=== PATIENT | female | born 1980 | race Two or more races ===

== ENCOUNTER 2024-05-06 23:20 | Emergency (ER) | payer BC, OTHER, SELFPAY ==
[2024-05-06 23:22] VITALS: BMI 27.7
--- NOTE | 2024-05-06 23:25 | EKG_ITS ---
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1980 Requested By: ED Temporary Provider Order Number: [id number] Reading MD: ED Temporary Provider Measurements Intervals [place] Rate: 103 P: 49 IA: 142 QRS: -14 QRSD: 95 T: 36 QT: 335 QTc: 440 Interpretive Statements SINUS TACHYCARDIA LOW QRS VOLTAGE IN PRECORDIAL LEADS [QRS DEFLECTION < 1.0 mV IN CHEST LEADS] INCOMPLETE RIGHT BUNDLE BRANCH BLOCK [90+ ms QRS DURATION, TERMINAL R IN V1/V2, 40+ ms S IN I/aVL/V4/V5/V6] POSSIBLE ANTERIOR MYOCARDIAL INFARCTION , OF INDETERMINATE AGE [30 ms Q WAVE IN V3/V4, OR R < 0.2 mV IN V4] Compared to ECG 01/26/2022 07:33:01 Low QRS voltage now present Myocardial infarct finding now present Sinus rhythm no longer present /store/S0/[id number].pdf
[2024-05-06 23:37] VITALS: BP 149/90; PULSE 107; RESP 20; TEMP 37; O2SAT 98
--- NOTE | 2024-05-06 23:48 | XR_ITS ---
Examination: PA chest single view TECHNIQUE: Upright PA chest single view Exam done: 02/06/2024 at 10:50 PM Comparison March 02, 2022 INDICATIONS: Chest pain beginning 4 days ago FINDINGS: Normal heart size No pneumonia or pulmonary edema The osseous structures are intact IMPRESSION: No lobar pneumonia or pulmonary edema
--- NOTE | 2024-05-06 23:48 | PD.EDRME ---
Rapid Medical Screening Exam RME Arrival date/time: 05/06/24 23:20 Chief Complaint: Chest Pain Time Seen by Provider: 05/06/24 23:35 Vital signs: Vital Signs Temperature 98.6 F 05/06/24 23:37 Pulse Rate 107 H 05/06/24 23:37 Respiratory Rate 20 05/06/24 23:37 Blood Pressure 149/90 H 05/06/24 23:37 Pulse Oximetry (%) 98 05/06/24 23:37 Oxygen Delivery Method Room Air 05/06/24 23:37 E Narrative: Intermittent substernal sharp, shock-like chest pains x4 days. No other symptoms reported.
--- NOTE | 2024-05-06 23:57 | EDNOTE_ITS ---
ED Chest Pain RME/HPI General Chief Complaint: Chest Pain Stated Complaint: CHEST PAIN X 4 DAYS Time Seen by Provider: 05/06/24 23:35 Arrival date/time: 05/06/24 23:20 RME / HPI RME / HPI narrative: Intermittent substernal sharp, shock-like chest pains x4 days. No other symptoms reported. ------ This section includes all my notes and documentations, including HPI, PE, and ED course. Juan Luis Hatch MD HPI: 44yo female presents to the ED for a chief complaint of intermittent chest pain x 3-4 days. Patient describes her pain as sharp in nature. No radiation or migration. She denies any past medical history and is not on any medications. She denies any cough, shortness of breath, fever, chills or any other associated symptoms. No other complaints reported. ROS: All negative except as documented in HPI. Physical Exam: General: Alert and oriented. No acute distress when remaining still. Eyes: Conjunctivae and lids clear. ENT: No nasal congestion. Neck: Supple. Heart: RRR. Lungs: No respiratory distress. Good air movement. No rhonchi, wheezing, rales. Abdomen: Soft and nontender. Legs: No clubbing, cyanosis, edema. Skin: Warm and dry. Neuro: Alert and oriented X 3. I reviewed all diagnostic test results. My interpretation of the EKG is sinus rhythm with no acute ST?T changes. My interpretation of the chest x-ray is no acute findings. Blood tests and urine tests unremarkable. At this point, diagnoses include palpitations. Treatment here included Xanax. Significant improvement noted. Recommended more outpatient cardiac workup. Based on my best medical judgment, made decision no further evaluation or treatment indicated at this time. Patient understands and agrees to the discharge instructions customized and printed, see below. Discharge instructions from Dr. Hatch: 1. After extensive evaluation, there is no life-threatening condition. Such as heart attack or pneumothorax (collapsed lung). 2. Your symptoms may be due to underlying stress or anxiety or nerves. There are other possibilities. 3. Take metoprolol ER 25 mg daily, this will help slow your heart. You will live longer with slower heart rate. 4. See a private doctor on 05/08/2024 for recheck. To make sure there is no serious underlying heart condition, ask to help you get more tests for your heart that cannot be done here in the ER. Such as Holter Monitor (cardiac monitoring at home from a day to even a month), heart stress test (on treadmill or with medication), echocardiogram (imaging of your heart structures), heart catherization (checking for blockages in your heart arteries ), and a referral to see a Communication Electronic Technician. 5. Seek immediate medical care with worsening or with any concerns. Juan Luis Hatch MD Related Data Previous Rx's ?Medication ?Instructions ?Recorded ciprofloxacin HCl 500 mg tablet 500 mg PO BID #14 tabs 02/03/23 (Cipro) metoprolol succinate 25 mg capsule 25 mg PO QDAY #30 e a 05/07/24 sprinkle, ext. release 24 hr Allergies Allergy/AdvReac Type Severity Reaction Status Date / Time latex Allergy Severe RASH Verified 05/06/24 23:21 Review of Systems Review of Systems Systems Reviewed: All systems reviewed, normal except as documented Past Medical History Social History SMOKING STATUS: Never smoker ED Exam Narrative Physical exam: As noted in HPI. Course Course Course Narrative: CXR is ordered for determining the etiology of chest pain. Quality Measures none Orders Category Date Time Status EKG (ED ONLY) *Do not use* NOW Care 05/06/24 23:25 Completed CXR [XR chest 1V] Stat Exams 05/06/24 23:48 Completed EKG (ED Only) Stat Exams 05/06/24 23:25 Draft BNP [B-Type Natriuretic Peptide] Stat Lab 05/06/24 23:48 Completed CBC Stat Lab 05/06/24 23:48 Completed CMP [Comprehensive Metabolic Panel] Stat Lab 05/06/24 23:48 Completed Magnesium Stat Lab 05/07/24 00:07 Completed Thyroid Stimulating Hormone Stat Lab 05/07/24 00:07 Completed Troponin I Stat Lab 05/06/24 23:48 Completed UA [Urinalysis] Stat Lab 05/07/24 00:34 Completed ALPRazoLAM [Xanax] Med 05/07/24 00:28 Discontinued 0.25 mg PO X1 ONE Vital Signs Vital signs: Vital Signs Temperature 98.6 F 05/06/24 23:37 Pulse Rate 107 H 05/06/24 23:37 Respiratory Rate 20 05/06/24 23:37 Blood Pressure 149/90 H 05/06/24 23:37 Pulse Oximetry (%) 98 05/06/24 23:37 Oxygen Delivery Method Room Air 05/06/24 23:37 Chest Pain MDM Narrative MDM Narrative:: Scribe Attestation: 05/06/24 Whitney Chavarria am scribing for and in the presence of Dr. Hatch. Patient data External records reviewed:: [facility] previous records (Per chart review, patient was seen here on 02/03/23 for abdominal pain.) Clinical information provided by:: patient Social determinants that could affect healthcare access:: none Patient has the following chronic illnesses:: none How is presenting disease/condition affected by chronic disease/condition?: no chronic disease Evaluation data The following diagnostics were reviewed and interpreted by me:: lab results, radiology exam(s) and EKG tracing(s) Lab and/or radiology exams considered but not ordered:: none Interpretation Summary: Palpitations Medications / Prescriptions Medications or Prescriptions considered but not ordered:: none Medication administrations:: Medication Administration History Discontinued Medications Alprazolam (Alprazolam 0.25 Mg Tablet) 0.25 mg PO X1 ONE Stop: 05/07/24 00:29 Last Admin: 05/07/24 00:44 Dose: 0.25 mg Documented By: NASH Wilkinson Consultations Consultation(s) initiated? (list below): No Diagnosis Chest Pain Differential Diagnosis: pneumothorax, stable angina, unstable angina pectoris, atypical chest pain, st elevation myocardial infarction, cost ochondritis and other (Anxiety, chest wall.) Most likely diagnosis given after review of the tests above:: Palpitations Admission Indicated Admission indicated?: not indicated Explain why admission is indicated or not indicated:: No criteria for admission. Admission Request Was there a request for admission?: No Disposition Plan Disposition Plan: Discharge Discharge Attestation Discharge Attestation: The patient and all family members were given an opportunity to ask questions and understood the discharge instructions. Discharge instructions specifically effects, indications for sooner follow up or return to the emergency department, and the expected course of current diagnosis. Patient condition: Stable Discharge Plan Plan Patient Disposition: HOME (Self Care) Prescriptions/Referrals Prescriptions/Med Rec: New metoprolol succinate 25 mg capsule,sprinkle,ER 24hr 25 mg PO QDAY Qty: 30 0RF No Action ciprofloxacin HCl [Cipro] 500 mg tablet 500 mg PO BID Qty: 14 0RF Referrals: No Primary/Family,Physician [Primary Care Provider] - In 1 week Problem List Clinical Impression: Heart rate fast Patient/Caregiver Discharge Instructions Discharge Activity: activity as tolerated Education Materials: ED Palpitations Additional Instructions: Discharge instructions from Dr. Hatch: 1. After extensive evaluation, there is no life-threatening condition.? Such as heart attack or pneumothorax (collapsed lung). 2. Your symptoms may be due to underlying stress or anxiety or nerves.? There are other possibilities. 3. Take metoprolol ER 25 mg daily, this will help slow your heart. You will live longer with slower heart rate. 4. See a private doctor on 05/08/2024 for recheck. To make sure there is no serious underlying heart condition, ask to help you get more tests for your heart that cannot be done here in the ER.? Such as Holter Monitor (cardiac monitoring at home from a day to even a month), heart stress test (on treadmill or with medication), echocardiogram (imaging of your heart structures), heart catherization (checking for blockages in your heart arteries), and a referral to see a Communication Electronic Technician. 5. Seek immediate medical care with worsening or with any concerns.?? Print Language: Chilean Stand Alone Forms: Tracy Award Info., Patient Portal Info Letter
[2024-05-07 00:37] LABS: Basophils # (Auto) 0.1 Thou/mm3 (0.0-0.2); Basophils % (Auto) 1 % (0-2.5); Eosinophils # (Auto) 0.5 Thou/mm3 (0.0-0.5); Eosinophils % (Auto) 5 % (0-10); Hematocrit 32.1 % (36.0-46.0); Hemoglobin 10.4 g/dL (12.0-16.0); Immature Granulocytes % (Auto) 0 % (0-0); Immature Granulocytes Auto 0.02 Thou/mm3 (0.00-0.00); Lymphocytes # (Auto) 3.3 Thou/mm3 (1.0-4.8); Lymphocytes % (Auto) 36 % (10-50); Mean Corpuscular HGB Conc 32.4 g/dl (31.0-37.0); Mean Corpuscular Hemoglobin 25.3 pg (25.0-35.0); Mean Corpuscular Volume 78 fL (80-100); Monocytes # (Auto) 0.8 Thou/mm3 (0.0-0.8); Monocytes % (Auto) 9 % (0-12); Neutrophils # (Auto) 4.5 Thou/mm3 (1.8-7.7); Neutrophils % (Auto) 49 % (37-80); Nucleated Red Blood Cell % 0 /100 WBC (0); Platelet Count 319 Thou/mm3 (140-440); RDW Standard Deviation 48.1 fL (36.4-46.3); Red Blood Count 4.11 Miln/mm3 (4.00-5.20); White Blood Count 9.2 Thou/mm3 (3.6-11.0)
[2024-05-07] MEDS: ALPRazoLAM 0.25 MG TABLET PO (00:44)
[2024-05-07 00:49] LABS: B-Type Natriuretic Peptide < 20 pg/mL (0-100)
[2024-05-07 00:58] LABS: Alanine Aminotransferase 8 U/L (10-49); Albumin, Serum 4.3 gm/dL (3.5-5.0); Albumin/Globulin Ratio 1.6 (1.2-2.2); Alkaline Phosphatase 72 U/L (46-116); Anion Gap 9 (7-16); Aspartate Amino Transferase 11 U/L (0-34); BUN/Creatinine Ratio 14 Ratio (12-20); Bilirubin,Total 0.2 mg/dL (0.3-1.2); Blood Urea Nitrogen 10 mg/dL (9-23); Calcium 9.3 mg/dL (8.3-10.6); Calcium (Corrected) 9.3 mg/dL (8.5-10.1); Carbon Dioxide 24.1 mMol/L (20.0-31.0); Chloride 108 mMol/L (98-107); Creatinine (Component) 0.7 mg/dL (0.6-1.3); Estimated Creatinine Clearance 109.5 mL/min (>60); Globulin 2.7 gm/dL (2.3-3.5); Glucose 126 mg/dL (74-106); Magnesium 2.1 mg/dL (1.6-2.6); Osmolality,Calculated 282 (275-295); Potassium 3.5 mMol/L (3.4-5.1); Sodium 141 mMol/L (136-145); Troponin I < 0.020 ng/mL (0.0-0.045); eGFR > 60 See Note
[2024-05-07 01:14] LABS: Collection Type, Urine Clean Catch
[2024-05-07 01:28] LABS: Bilirubin,Urine Negative (Negative); Blood,Urine Negative (Negative); Clarity,Urine Clear (Clear/Hazy); Color,Urine Lt-Yellow (Lt Yel-Yel); Glucose, Urine Negative (Negative); Ketones,Urine Negative (Negative); Leukocyte Esterase,Urine Negative (Negative); Nitrite,Urine Negative (Negative); PH,Urine 7.5 (5.0-7.0); Protein,Urine Trace (Neg - Trace); RBC,Urine 3 /hpf (0-3); Specific Gravity,Urine 1.019 (1.001-1.035); Squamous Epithelial Cell,Urine 1 /hpf (0-5); Urobilinogen,Urine Negative mg/dL (0.0-1.0); WBC,Urine 1 /hpf (0-5)
[2024-05-07 01:52] VITALS: RESP 18
== END 2024-05-07 01:55 | disposition home or self-care (01) ==
PROVIDERS: Physician Assistant; Emergency Provider Emergency Medicine
DX: R00.0 Tachycardia, unspecified (principal); R07.89 Other chest pain
CPT/HCPCS: 36415; 71045; 80053; 81001; 83735; 83880; 84443; 84484; 85025; 93005; 99283; A9270